=== PATIENT | female | born 1980 | race Caucasian/White ===

== ENCOUNTER → 2019-07-19 | Day surgery (SDC) | payer OTHER ==
[2019-07-14 16:44] VITALS: BMI 21.4
[~2019-07-19] MED LIST: LIDOCAINE HCL/PF 2% SDV 5ML VIAL ONE; PROPOFOL 20 ML ONE
[2019-07-19 08:56] VITALS: BP 121/64; PULSE 70; TEMP 97.9
--- NOTE | 2019-07-21 15:44 | PATH ---
Surgical Pathology Report Patient Name: BRANDI BRADLEY [facility]. Rec. #: [id number] /Age/Gender: 1980 (Age: 39) / F Account: [id number] Location: [facility] Taken: 07/19/2019 Received: 07/19/2019 Reported: 07/21/2019 Physicians: Jose Soni M.D. Specimen(s) Received BX PYLORIC FOLD Clinical History Abnormal capsule endoscopy finding Postoperative diagnosis: Normal Final Diagnosis PYLORIC FOLD, BIOPSY: DUODENAL-TYPE MUCOSA SHOWING MODERATE CHRONIC DUODENITIS. SCANT GASTRIC ANTRAL TYPE MUCOSA SHOWING MILD CHRONIC INFLAMMATION. IMMUNOSTAIN IS NEGATIVE FOR H. PYLORI ORGANISMS. Electronically Signed Lenore Lcay M.D. Gross Description Received in formalin, labeled "biopsy pyloric fold" are 4 waldrop, irregular portions of soft tissue ranging from 0.2-0.4 cm. in greatest dimension. The specimens are submitted in toto in one cassette. 07/20/2019 [facility]07/20/2019
== END | disposition home or self-care (01) ==
LOC: FASU-ENDO 07:11
PROVIDERS: ATTEND Internal Medicine Gastroenterology
PROC: 0DB68ZX Excision of Stomach, Via Natural or Artificial Opening Endoscopic, Diagnostic (ICD-10-PCS; principal; 2019-07-19 08:22)
DX: R93.3 Abnormal findings on diagnostic imaging of other parts of digestive tract (principal); K29.80 Duodenitis without bleeding; K29.70 Gastritis, unspecified, without bleeding; K31.89 Other diseases of stomach and duodenum
CPT/HCPCS: 84703